=== PATIENT | male | born 1970 | race Caucasian/White ===

== ENCOUNTER 2019-07-20 08:34 | Emergency (ER) | payer OTHER ==
[~2019-07-20] VITALS: Ht 172.7 cm; Wt 94.0 kg
--- NOTE | 2019-07-20 09:09 | NUR ---
PATIENT PRESENTS TO ED TODAY FOR CHEST/EPIGASTRIC PAIN X 5 DAYS. PT. REPORTS ELEVATED LIPASE LEVELS LAST FRI WITH PCP. [employer]IPMENT [employer]GEANT ON PATIENT, DENIES CARDIAC HX. AWAITING MD ORDERS, NADN. CALL LIGHT WITHIN REACH.
[2019-07-20] MEDS ORDERED: ATOR-2 PO (09:13)
--- NOTE | 2019-07-20 09:19 | NUR ---
PATIENT REFUSING PAIN MEDICATION, STATES HE HAS TO DRIVE TO AN APT LATER TODAY.
[2019-07-20] MEDS ORDERED: PLEASE ENTER ALLERGIES MC SCH (09:30)
[2019-07-20] MEDS ORDERED: HYDROmorphone 2 MG/ML, 1ML IM PRN (09:30)
--- NOTE | 2019-07-20 09:59 | NUR ---
REPORT TO DONN GONZALEZ.
--- NOTE | 2019-07-20 10:00 | NUR ---
REPORT FROM PATRICK POP
--- NOTE | 2019-07-20 10:04 | NUR ---
REPORT FROM PATRICK POP PATIENT TO ULTRASOUND
[2019-07-20 10:26] LABS: MEAN CORPUSCULAR HEMOGLOBIN 31.8 pg (27.5-34.5); MEAN CORPUSCULAR HGB CONC 35.8 g/dL (33.2-36.2); MEAN PLATELET VOLUME 8.1 fL (7.4-10.4); PLATELET COUNT 208 x10^3/uL (130-400); RED BLOOD COUNT 4.74 x10^6/uL (4.38-5.82)
[2019-07-20 10:32] LABS: BASOPHILS # (AUTO) 0.02 x10^3/uL (0-0.1); BASOPHILS % (AUTO) 0 % (0-1); EOSINOPHILS # (AUTO) 0.14 x10^3/uL (0-0.4); EOSINOPHILS % (AUTO) 2 % (1-7); LYMPHOCYTES # (AUTO) 1.86 x10^3/uL (1-3.4); LYMPHOCYTES % (AUTO) 31 % (22-44); MD SCAN; MONOCYTES # (AUTO) 0.31 x10^3/uL (0.2-0.8); MONOCYTES % (AUTO) 5 % (2-9); NEUTROPHILS % (AUTO) 61 % (42-75)
[2019-07-20 11:16] LABS: ALBUMIN 3.6 g/dL (3.4-5.0); ALKALINE PHOSPHATASE 190 U/L (45-117); ANION GAP 9 mmol/L (5-15); BILIRUBIN,TOTAL 0.7 mg/dL (0.2-1.0); CALCIUM 8.8 mg/dL (8.5-10.1); CHLORIDE 106 mmol/L (98-107); CREATININE 0.96 mg/dL (0.7-1.3); TOTAL PROTEIN 7.6 g/dL (6.4-8.2)
[2019-07-20 11:18] LABS: ALANINE AMINOTRANSFERASE 147 U/L (12-78)
[2019-07-20 11:23] VITALS: BP 138/92
--- NOTE | 2019-07-20 11:26 | NUR ---
WITH REASSESSMENT PATIENT REPORTS "CONTINUED RUQ PAIN RATED AT 2/10" DEFERRING PAIN/NAUSE MEDICINE ALL TESTING RESULTS REVIEWED- PLACED FOR RECHECK PATIENT ASKING FOR UPDATE (HAS MEETING AT 130P)
[2019-07-20] MEDS ORDERED: CALCIUM CARBONATE 500 MG TABLET PO ONE (12:12)
[2019-07-20 12:54] LABS: TROPONIN I < 0.015 ng/mL (0.000-0.045)
== END 2019-07-20 12:40 | disposition home or self-care (01) ==
LOC: ED 11:34
DX: K21.9 Gastro-esophageal reflux disease without esophagitis (principal)
CPT/HCPCS: 36415; 76700; 80053; 83690; 84484; 85025; 93005; 99284

== ENCOUNTER 2019-10-29 13:23 | Emergency (ER) | payer OTHER ==
[~2019-10-29] VITALS: Ht 172.7 cm; Wt 92.7 kg
[~2019-10-29 13:23] MED LIST changes: -OMNIPAQUE 350 MG/ML, 100ML BOTTLE ONE
--- NOTE | 2019-10-29 14:05 | NUR ---
FIRST CONTACT WITH PT. PT FROM , OUTPT CT SHOWED PANCREATITIS, PT TO BE ADMITTED. ABD PAIN XMONTHS. NO N/V/D. PT'S AOX4. RESPS EVEN AND UNLABORED. BP/SPO2 MONITORS IN PLACE. PT HAS PIV FOR CT VP PACKAGING. CALL LIGHT WITHIN REACH.
--- NOTE | 2019-10-29 14:09 | NUR ---
URINE CUP GIVEN.
--- NOTE | 2019-10-29 14:17 | NUR ---
PT AMB TO BR AND BACK TO ROOM WITH STEADY GAIT. UA COLLECTED AND SENT.
[2019-10-29 14:26] LABS: MICROSCOPIC NOT IND
[2019-10-29 14:30] LABS: CULTURE INDICATED? NO
[2019-10-29 14:41] LABS: BASOPHILS # (AUTO) 0.07 x10^3/uL (0-0.1); BASOPHILS % (AUTO) 1 % (0-1); EOSINOPHILS # (AUTO) 0.18 x10^3/uL (0-0.4); EOSINOPHILS % (AUTO) 2 % (1-7); LYMPHOCYTES # (AUTO) 1.46 x10^3/uL (1-3.4); LYMPHOCYTES % (AUTO) 15 % (22-44); MD NO; MEAN CORPUSCULAR HEMOGLOBIN 29.3 pg (27.5-34.5); MEAN CORPUSCULAR HGB CONC 34.4 g/dL (33.2-36.2); MEAN PLATELET VOLUME 7.9 fL (7.4-10.4); MONOCYTES # (AUTO) 0.83 x10^3/uL (0.2-0.8); MONOCYTES % (AUTO) 9 % (2-9); NEUTROPHILS # (AUTO) 7.28 x10^3/uL (1.8-6.8); NEUTROPHILS % (AUTO) 74 % (42-75); PLATELET COUNT 205 x10^3/uL (130-400); RED BLOOD COUNT 4.38 x10^6/uL (4.38-5.82); RED CELL DISTRIBUTION WIDTH 14.2 % (9.4-14.8)
[2019-10-29 14:48] LABS: ALANINE AMINOTRANSFERASE 66 U/L (12-78); ALBUMIN 2.9 g/dL (3.4-5.0); ANION GAP 8 mmol/L (5-15); CALCIUM 8.9 mg/dL (8.5-10.1); CHLORIDE 101 mmol/L (98-107); CREATININE 0.85 mg/dL (0.7-1.3)
[2019-10-29 14:51] LABS: ALKALINE PHOSPHATASE 367 U/L (45-117); BILIRUBIN,TOTAL 0.7 mg/dL (0.2-1.0); TOTAL PROTEIN 7.7 g/dL (6.4-8.2)
--- NOTE | 2019-10-29 15:39 | NUR ---
PT REQUESTING PAIN MED AT THIS TIME. EDMD NOTIFIED.
[2019-10-29] MEDS ORDERED: OXYcodone/APAP 5/325MG TABLET ONE (15:45)
--- NOTE | 2019-10-29 15:47 | NUR ---
PT MEDICATED PER EMAR. PT TOLERATED WELL.
[2019-10-29 15:52] LABS: CHOLESTEROL, TOTAL 214 mg/dL (140-239); TRIGLYCERIDES 425 mg/dL (50-200)
[2019-10-29 15:53] LABS: CHOL/HDL RATIO 13.4; HDL CHOL % 7 % (26-37); HDL CHOLESTEROL (DIRECT) 16 mg/dL (40-60)
[2019-10-29] MEDS ORDERED: OXYcodone/APAP 5/325MG TABLET PO ONE (16:00)
[2019-10-29 16:36] VITALS: BP 105/63
--- NOTE | 2019-10-29 16:36 | NUR ---
PT RESTING IN GURNEY. PT'S AOX4. RESPS EVEN AND UNLABORED. PT'S PAIN LEVEL IS 0/10 AT THIS TIME.
--- NOTE | 2019-10-29 17:40 | NUR ---
Patient given discharge instructions and they have confirmed that they understand the instructions. Patient ambulatory with steady gait.
== END 2019-10-29 17:41 | disposition home or self-care (01) ==
LOC: ED 15:14
DX: K86.1 Other chronic pancreatitis (principal); K21.9 Gastro-esophageal reflux disease without esophagitis
CPT/HCPCS: 36415; 80053; 80061; 81003; 83690; 85025; 99283

== ENCOUNTER → 2019-10-29 | Outpatient (CLI) | payer OTHER ==
[~2019-10-29] MED LIST: ATOR-2 PO; OMNIPAQUE 350 MG/ML, 100ML BOTTLE ONE
== END | disposition home or self-care (01) ==
LOC: RAD 11:20
PROVIDERS: ATTEND Nurse Practitioner Primary Care
DX: K76.0 Fatty (change of) liver, not elsewhere classified (principal); K85.90 Acute pancreatitis without necrosis or infection, unspecified; R16.2 Hepatomegaly with splenomegaly, not elsewhere classified; J90 Pleural effusion, not elsewhere classified; J98.11 Atelectasis
CPT/HCPCS: 74177; Q9967

== ENCOUNTER 2020-12-12 11:47 | Emergency (ER) | payer OTHER ==
[~2020-12-12] VITALS: Ht 172.7 cm; Wt 90.2 kg
--- NOTE | 2020-12-12 13:23 | NUR ---
PT TO RM FROM LOBBY
--- NOTE | 2020-12-12 13:31 | NUR ---
PT CAME IN CO RUQ ABD PAIN. PT HAX HX OF PANCREATITS AND STATES HE HASNT BEEN DRINKING VERY MUCH BUT WAS IN [place] LAST WEEK AND DRANK SOME BEERS THEN. PT ALSO STATES PAIN IS WORSE AFTER HE EATS FOOD. PT RESTING IN [facility]. CONNECTED TO MONITORING EQUIPMENT
[2020-12-12 14:06] LABS: MICROSCOPIC NOT IND
[2020-12-12 14:12] LABS: BASOPHILS % (AUTO) 1 % (0-1); EOSINOPHILS % (AUTO) 1 % (1-7); LYMPHOCYTES % (AUTO) 34 % (22-44); MEAN CORPUSCULAR HEMOGLOBIN 30.8 pg (27.5-34.5); MEAN CORPUSCULAR HGB CONC 34.9 g/dL (33.2-36.2); MEAN PLATELET VOLUME 8.5 fL (7.4-10.4); MONOCYTES % (AUTO) 6 % (2-9); NEUTROPHILS % (AUTO) 58 % (42-75); PLATELET COUNT 179 x10^3/uL (130-400); RED BLOOD COUNT 4.74 x10^6/uL (4.38-5.82); RED CELL DISTRIBUTION WIDTH 13.1 % (9.4-14.8)
[2020-12-12 14:14] LABS: MD NO
[2020-12-12 14:23] LABS: ALANINE AMINOTRANSFERASE 230 U/L (12-78); ALBUMIN 3.6 g/dL (3.4-5.0); ANION GAP 4 mmol/L (5-15); CALCIUM 9.1 mg/dL (8.5-10.1); CHLORIDE 105 mmol/L (98-107); CREATININE 0.89 mg/dL (0.7-1.3)
--- NOTE | 2020-12-12 14:25 | NUR ---
US IN WITH PT AT THIS TIME
[2020-12-12 14:26] LABS: ALKALINE PHOSPHATASE 167 U/L (45-117); BILIRUBIN,TOTAL 0.9 mg/dL (0.2-1.0); TOTAL PROTEIN 7.8 g/dL (6.4-8.2)
[2020-12-12 14:31] VITALS: BP 128/83
== END 2020-12-12 16:06 | disposition home or self-care (01) ==
LOC: ED 15:43
DX: K80.50 Calculus of bile duct without cholangitis or cholecystitis without obstruction (principal); R10.11 Right upper quadrant pain; R74.01 Elevation of levels of liver transaminase levels; K21.9 Gastro-esophageal reflux disease without esophagitis
CPT/HCPCS: 36415; 76700; 80053; 81003; 83690; 85025; 93005; 99285

== ENCOUNTER 2020-12-29 07:28 | Outpatient (CLI) | payer OTHER ==
[2020-12-29] MEDS ORDERED: NONE PER PT (07:47)
== END 2020-12-29 23:59 | disposition home or self-care (01) ==
LOC: STAR 07:28
PROVIDERS: ATTEND Surgery
DX: Z20.822 Contact with and (suspected) exposure to COVID-19 (principal); K81.1 Chronic cholecystitis
CPT/HCPCS: U0003

== ENCOUNTER 2021-01-04 07:59 | Day surgery (SDC) | payer OTHER ==
[~2021-01-04] VITALS: Ht 172.7 cm; Wt 87.7 kg
[~2021-01-04 07:59] MED LIST changes: +NONE PER PT
[2021-01-04 08:50] VITALS: BP 123/78
[2021-01-04] MEDS ORDERED: INDOCYANINE GREEN 25 MG VIAL ONE (08:56)
[2021-01-04] MEDS ORDERED: INDOCYANINE GREEN 25 MG VIAL IVPush ONE (09:00)
[2021-01-04] MEDS ORDERED: CHLORHEXIDINE 15 ML UDC PO ONE (09:00)
[2021-01-04] MEDS ORDERED: LACTATED RINGERS 1,000 ML IV SCH (09:00)
[2021-01-04] MEDS ORDERED: CHLORHEXIDINE 15 ML UDC ONE (09:02)
[2021-01-04] MEDS ORDERED: MIDAZOLAM 1 MG/ML, 2ML ONE (09:07)
[2021-01-04] MEDS ORDERED: FENTANYL PF 250 MCG/5ML ONE (09:07)
[2021-01-04] MEDS ORDERED: HALOPERIDOL 5 MG/ML IV PRN (09:30)
[2021-01-04] MEDS ORDERED: DIPHENHYDRAMINE 50 MG/ML, 1ML IVPush PRN (09:30)
[2021-01-04] MEDS ORDERED: HYDROmorphone 1 MG/ML, 1ML INJ IVPush PRN (09:30)
[2021-01-04] MEDS ORDERED: ACETAMINOPHEN 325 MG TABLET PO PRN (09:30)
[2021-01-04] MEDS ORDERED: hydrALAzine 20 MG/ML, 1ML IV PRN (09:30)
[2021-01-04] MEDS ORDERED: FENTANYL PF 100 MCG/2ML IV PRN (09:30)
[2021-01-04] MEDS ORDERED: PROMETHAZINE 25 MG/ML, 1ML IVPush PRN (09:30)
[2021-01-04] MEDS ORDERED: LABETALOL 5MG/ML, 20ML IV PRN (09:30)
[2021-01-04] MEDS ORDERED: OXYcodone 5 MG/5 ML ORAL.SOL UDC PO PRN (09:30)
[2021-01-04] MEDS ORDERED: MEPERIDINE/PF 25MG/0.5ML IVPush PRN (09:30)
[2021-01-04] MEDS ORDERED: BUPIVACAINE/PF 0.5% ONE (09:42)
[2021-01-04] MEDS ORDERED: EPINEPHRINE 1 MG/ML, 1ML ONE (09:42)
[2021-01-04] MEDS ORDERED: GLYCOPYRROLATE 0.2MG/1ML, 5ML ONE (09:54)
[2021-01-04] MEDS ORDERED: NEOSTIGMINE 1 MG/ML, 10ML ONE (09:54)
[2021-01-04] MEDS ORDERED: PROPOFOL 10 MG/ML, 20ML ONE (09:54)
[2021-01-04] MEDS ORDERED: SUCCINYLCHOLINE 20 MG/ML, 10ML ONE (09:54)
[2021-01-04] MEDS ORDERED: ONDANSETRON 2MG/ML, 2ML ONE (09:54)
[2021-01-04] MEDS ORDERED: ROCURONIUM 10 MG/ML,10ML ONE (09:54)
[2021-01-04] MEDS ORDERED: CEFOTETAN 2 GM ONE (09:54)
[2021-01-04] MEDS ORDERED: DEXAMETHASONE 4 MG/ML, 1ML ONE (09:54)
[2021-01-04] MEDS ORDERED: OXYcodone 5 MG/5 ML ORAL.SOL UDC ONE (11:37)
[2021-01-04] MEDS ORDERED: FENTANYL PF 100 MCG/2ML ONE (11:37)
== END 2021-01-04 14:12 | disposition home or self-care (01) ==
LOC: OUT 07:59
PROVIDERS: ATTEND Surgery
DX: K81.1 Chronic cholecystitis (principal); K82.8 Other specified diseases of gallbladder; K85.10 Biliary acute pancreatitis without necrosis or infection
CPT/HCPCS: 47562; 88304; J0171; J0330; J1100; J2250; J2405; J2704; J2710; J3010; J7120; S2900